=== PATIENT | female | born 1990 | race Caucasian/White ===

== ENCOUNTER 2021-05-13 03:36 | Inpatient (IN) ==
[~2021-05-13 03:36] MED LIST: *HR* Nalbuphine 10 MG/ML AMPUL IV PRN; Azithromycin 500 MG in 0.9 % Sodium Chloride 250 ML IVPB PRN; Famotidine 20 MG/2 ML VIAL IVP PRN; Metoclopramide 10 MG/2 ML VIAL IVP PRN; Naloxone 0.4 MG/ML INJ IVP PRN
[2021-05-13] MEDS ORDERED: Ringers Solution, Lactated 1,000 ML ONE (03:42)
[2021-05-13] MEDS ORDERED: Ringers Solution, Lactated 1,000 ML IVC SCH (03:45)
[2021-05-13 04:06] LABS: Basophils # 0.1 K/mcL (0.0-0.2); Basophils % 0.3 %; Eosinophils # 0.1 K/mcL (0.0-0.6); Eosinophils % 0.6 %; Hematocrit 40.5 % (35.3-44.9); Hemoglobin 14.3 g/dL (11.5-15.4); Immature Granulocytes % 0.8 % (0-4); Lymphocytes # 2.1 K/mcL (0.6-4.6); Lymphocytes % 11.9 %; Mean Corpuscular HGB Conc 35.3 g/dL (31.6-35.5); Mean Corpuscular Hemoglobin 32.1 pg (28.0-33.3); Mean Corpuscular Volume 90.8 fL (83.0-100.0); Mean Platelet Volume 9.9 fL (9.4-12.4); Monocytes # 1.2 K/mcL (0.0-1.3); Monocytes % 6.9 %; Neutrophils # 13.8 K/mcL (1.6-8.9); Platelet Count 174 K/mcL (140-400); Red Blood Count 4.46 M/mcL (3.82-4.97); Red Cell Distribution Width 13.3 % (11.5-14.5); Segmented Neutrophils % 79.5 %; White Blood Count 17.4 K/mcL (4.3-11.1)
[2021-05-13 04:13] LABS: Amphetamine Screen,Urine Negative ng/mL (Cutoff=1000); Barbiturate Screen,Urine Negative ng/mL (Cutoff=200); Benzodiazepines Screen,Urine Negative ng/mL (Cutoff=200); Cannabinoid Screen,Urine Negative ng/mL (Cutoff = 50); Cocaine Screen,Urine Negative ng/mL (Cutoff= 300); Opiate Screen,Urine Negative ng/mL (Cutoff=300); Phencyclidine Screen,Urine Negative ng/mL (Cutoff=25)
[2021-05-13 04:37] LABS: Influenza A PCR Negative (Negative); Influenza B PCR Negative (Negative); Resp. Syncytial Virus PCR Negative (Negative)
[2021-05-13 04:39] LABS: SARS-CoV-2 by PCR (In House) Negative (Negative)
[2021-05-13] MEDS ORDERED: EPHEDrine 50 MG/ML VIAL IVP PRN (06:01)
[2021-05-13] MEDS ORDERED: *HR* FentaNYL (PF) 100 MCG/2 ML VIAL EP ONE (06:01)
[2021-05-13] MEDS ORDERED: Ropivacaine/PF 0.2% 20 ML VIAL EP ONE (06:01)
[2021-05-13] MEDS ORDERED: Epidural Premix (fent/bupiv) 110 ML EP SCH (06:15)
[2021-05-13] MEDS ORDERED: Oxytocin 20 units/ LR 1000 mL 20 UNIT/1,000 ML BAG IVC SCH ×2 (09:00→15:52)
[2021-05-13] MEDS: Ondansetron 4 MG/2 ML VIAL IVP PRN ×2 (09:29→14:48)
[2021-05-13] MEDS ORDERED: Ibuprofen 600 MG TABLET PO PRN (13:24)
[2021-05-13] MEDS ORDERED: Benzocaine/Menthol 56 GM AEROSOL SPRAY TP PRN (15:52)
[2021-05-13] MEDS ORDERED: Ondansetron ODT 4 MG TAB.RAPDIS SL PRN (15:52)
[2021-05-13] MEDS ORDERED: Lanolin 7 G OINT...G. TP PRN (15:52)
[2021-05-13] MEDS: Acetaminophen 325 MG TABLET PO SCH (17:55)
[2021-05-14] MEDS: Ibuprofen 600 MG TABLET PO SCH ×2 (00:16→06:37)
[2021-05-14] MEDS: Acetaminophen 325 MG TABLET PO SCH (00:16)
[2021-05-14 08:03] VITALS: BP 106/68; PULSE 81; TEMP 97.6; O2SAT 98
[2021-05-14] MEDS ORDERED: Prenatal Vit/FA 1 EACH TABLET PO SCH (09:00)
== END 2021-05-14 13:40 | disposition home or self-care (01) | DRG 807 ==
LOC: 1NENULAB → 1NENUOBS 15:52
PROVIDERS: ADMIT Registered Nurse; ATTEND Registered Nurse